=== PATIENT | male | born 1990 | race Hispanic/Latino ===

== ENCOUNTER → 2017-04-20 | Outpatient (CLI) | payer OTHER ==
--- NOTE | 2017-04-20 10:04 | REP ---
MAXILLOFACIAL CT WITHOUT CONTRAST: HISTORY: Septal deviation. Minimal mucosal thickening is present in the ethmoid, maxillary, sphenoid and right frontal sinuses. The left frontal sinus is clear. Mucosal thickening involves the ostiomeatal units. The middle and inferior nasal turbinates are partially paradoxical. 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 There is mild deviation of the nasal septum to the left. The nasal septum abuts the left middle nasal turbinate. The cribriform plate, medial burrell of the orbits and optic canals are intact. The carotid canals form a segment of the posterolateral burrell of the sphenoid sinus. IMPRESSION: Sinus mucosal thickening as described above. Signed by Vimal Calle MD 04/20/2017 10:06 A
== END ==
LOC: M RAD 09:27
PROVIDERS: ATTEND Otolaryngology
DX: J34.2 Deviated nasal septum (principal)

== ENCOUNTER 2017-06-03 07:13 | Day surgery (SDC) | payer OTHER ==
[2017-06-03] MEDS ORDERED: LR 1,000 ML IV ×2 (08:00→12:30)
[2017-06-03] MEDS ORDERED: LIDOCAINE 1% MDV 20ML VIAL SQ (08:00)
[2017-06-03] MEDS ORDERED: ROCURONIUM BROMIDE 50 MG/5 ML VIAL As Ordered (08:36)
[2017-06-03] MEDS ORDERED: PROPOFOL 200 MG/20 ML VIAL As Ordered (08:36)
[2017-06-03] MEDS ORDERED: LIDOCAINE 2% INJ 100 MG/5 ML SDV (FOR ANES.) As Ordered (08:36)
[2017-06-03] MEDS ORDERED: ONDANSETRON 4MG/2ML VIAL (J2405) As Ordered (08:39)
[2017-06-03] MEDS ORDERED: MIDAZOLAM INJ 2 MG/2 ML VIAL (J2250) As Ordered (08:40)
[2017-06-03] MEDS ORDERED: fentaNYL 100 MCG/2 ML INJECTION (J3010) As Ordered ×3 (08:40→10:47)
[2017-06-03] MEDS: EPINEPHrine 1MG/ML INJ 30ML MD-VIAL As Ordered (09:38)
[2017-06-03] MEDS ORDERED: dexameTHASONE 4 MG/ML 1ML VIAL (J1100) As Ordered ×2 (10:14)
[2017-06-03] MEDS: OXYMETAZOLINE NASAL SPRAY (AFRIN) As Ordered ×3 (10:58→11:10)
[2017-06-03] MEDS: METHYLENE BLUE 0.5% (5MG/ML) 10 ML AMP (PROVAYBLUE)(Q9968 PER 1MG) As Ordered (11:00)
[2017-06-03] MEDS: SODIUM CHLORIDE 0.9% NASAL GEL 15MG (AYR) As Ordered (11:06)
[2017-06-03] MEDS: LIDOCAINE W/EPINEPHRINE 1% 20ML VIAL As Ordered (11:07)
[2017-06-03] MEDS ORDERED: KETOROLAC 30 MG/ML VIAL (J1885) As Ordered (11:41)
[2017-06-03] MEDS ORDERED: PERCOCET 5MG/325MG TAB As Ordered (11:41)
[2017-06-03] MEDS: KETOROLAC 30 MG/ML VIAL (J1885) IV (11:50)
[2017-06-03] MEDS: PERCOCET 5MG/325MG TAB PO ×2 (11:50→12:25)
[2017-06-03] MEDS ORDERED: ONDANSETRON 4MG/2ML VIAL (J2405) IV (12:30)
[2017-06-03] MEDS ORDERED: ACETAMINOPH W/CODEINE #3 TAB UD PO (12:30)
[2017-06-03] MEDS ORDERED: fentaNYL 100 MCG/2 ML INJECTION (J3010) IV (12:30)
[2017-06-03] MEDS ORDERED: MEPERIDINE INJ 25 MG/ML VIAL (J2175) IV (12:30)
== END 2017-06-03 14:09 | disposition home or self-care (01) ==
LOC: M SDC 07:13
DX: J34.2 Deviated nasal septum (principal); J01.40 Acute pansinusitis, unspecified; J33.9 Nasal polyp, unspecified; J34.3 Hypertrophy of nasal turbinates; J01.10 Acute frontal sinusitis, unspecified; J01.20 Acute ethmoidal sinusitis, unspecified; J01.30 Acute sphenoidal sinusitis, unspecified; J01.00 Acute maxillary sinusitis, unspecified; M47.816 Spondylosis without myelopathy or radiculopathy, lumbar region; M25.562 Pain in left knee; Z79.899 Other long term (current) drug therapy; Z79.1 Long term (current) use of non-steroidal anti-inflammatories (NSAID)
CPT/HCPCS: 31254